=== PATIENT | female | born 2000 | race Caucasian/White ===

== ENCOUNTER 2022-11-26 14:41 | Emergency (ER) | payer OTHER, SELFPAY ==
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
[2022-11-26 14:48] VITALS: BP 119/62; PULSE 92; RESP 18; TEMP 36.6; O2SAT 100
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
[2022-11-26] MEDS: CYCLOBENZAPRINE HCL 10 MG TABLET PO (16:11)
[2022-11-26] MEDS: HYDROcodone/acetaminophen (*CRX) 5-325 MG TABLET 1 TAB PO (16:11)
== END 2022-11-26 16:49 | disposition home or self-care (01) ==
PROVIDERS: Emergency Provider Emergency Medicine
DX: M23.92 Unspecified internal derangement of left knee (principal); S89.92XA Unspecified injury of left lower leg, initial encounter; V18.4XXA Pedal cycle driver injured in noncollision transport accident in traffic accident, initial encounter; Y93.55 Activity, bike riding
CPT/HCPCS: 73564; 99283; A9270

== ENCOUNTER 2022-12-20 07:08 | Outpatient (CLI) | payer OTHER, SELFPAY ==
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
== END 2022-12-20 07:09 ==
PROVIDERS: PCP Nurse Practitioner; Visit Provider Nurse Practitioner
DX: M25.562 Pain in left knee (principal); S83.512A Sprain of anterior cruciate ligament of left knee, initial encounter; S83.522A Sprain of posterior cruciate ligament of left knee, initial encounter; S83.422A Sprain of lateral collateral ligament of left knee, initial encounter; M25.462 Effusion, left knee
CPT/HCPCS: 73721